=== PATIENT | male | born 1950 | race Caucasian/White ===

== ENCOUNTER 2019-03-21 23:58 | Emergency (ER) | payer MEDICARE, OTHER ==
[~2019-03-21] VITALS: Ht 190.5 cm; Wt 113.6 kg
[~2019-03-21 23:58] MED LIST: DULO-31 PO; TADA5TAB2 PO
[2019-03-22 00:57] VITALS: BP 126/72
== END 2019-03-22 01:35 | disposition home or self-care (01) ==
LOC: ER 23:59
DX: S06.9X1A Unspecified intracranial injury with loss of consciousness of 30 minutes or less, initial encounter (principal); Z79.899 Other long term (current) drug therapy; Y04.2XXA Assault by strike against or bumped into by another person, initial encounter; Y93.89 Activity, other specified; Y92.89 Other specified places as the place of occurrence of the external cause; Y99.8 Other external cause status
CPT/HCPCS: 70450; 99284

== ENCOUNTER 2020-07-31 12:55 | Inpatient (IN) | payer OTHER ==
[2020-07-31] VITALS (7 sets, daily range): BP systolic 127–147; BP diastolic 77–96
[~2020-07-31] VITALS: Ht 190.5 cm; Wt 111.4 kg
[2020-07-31] MEDS ORDERED: TETanus/Pertussis (Acell)/Diphther VAC/PF (Tdap-Adult) 0.5ml syringe IMVAC ONE (13:20)
[2020-07-31] MEDS ORDERED: ceFAZolin 1000mg inj IV ONE (13:20)
[2020-07-31] MEDS ORDERED: LIDOcaine 1% W/epiNEPHrine 1:200,000 10ml vial IJ ONE (13:20)
[2020-07-31] MEDS ORDERED: ceFAZolin 2gm in dextrose, iso 50 ML IV ONE (13:25)
--- NOTE | 2020-07-31 13:35 | NUR ---
CAT tourniquet removed at [address] prakash's verbal order[address] Dr[address] Prakash in room with patient.
[2020-07-31] MEDS ORDERED: ringers solution, lacted 1,000 ML IV SCH ×2 (15:07→16:24)
[2020-07-31] MEDS ORDERED: sevoflurane 250ml liquid IH ONE (15:22)
[2020-07-31] MEDS ORDERED: midazolam 2 mg/2 ml injection ONE (15:29)
[2020-07-31 15:35] LABS: BASOPHILS # (AUTO) 0.1 X10'3 (0-0.2); BASOPHILS % (AUTO) 1.5 % (0-1); EOSINOPHILS # (AUTO) 0.2 X10'3 (0-0.9); HEMATOCRIT 48.6 % (42.0-52.0); LYMPHOCYTES # (AUTO) 1.3 X10'3 (1.1-4.8); LYMPHOCYTES % (AUTO) 13.2 % (21-51); MEAN CORPUSCULAR HEMOGLOBIN 34.5 PG (27.0-31.0); MEAN CORPUSCULAR HGB CONC 34.9 g/dL (33.0-36.5); MEAN CORPUSCULAR VOLUME 98.8 FL (78-98); MEAN PLATELET VOLUME 8.8 FL (7.4-10.4); MONOCYTES # (AUTO) 0.4 X10'3 (0-0.9); MONOCYTES % (AUTO) 4.2 % (2-12); NEUTROPHILS # (AUTO) 7.5 X10'3 (1.8-7.7); NEUTROPHILS % (AUTO) 79.1 % (42-75); PLATELET COUNT 180 X10'3 (140-440); RED BLOOD COUNT 4.92 X10'6 (4.70-6.10); RED CELL DISTRIBUTION WIDTH 12.9 % (11.5-14.5); WHITE BLOOD COUNT 9.5 X10'3 (4.5-11.0)
[2020-07-31 15:50] LABS: ALANINE AMINOTRANSFERASE 40 U/L (12-78); ALBUMIN 3.8 G/DL (3.4-5.0); ALBUMIN/GLOBULIN RATIO 1.1 (1.1-1.5); ALKALINE PHOSPHATASE 82 IU/L (46-116); ANION GAP 8 (8-16); ASPARTATE AMINO TRANSFERASE 13 U/L (10-37); BILIRUBIN,TOTAL 0.4 MG/DL (0.1-1.0); BLOOD UREA NITROGEN 22 MG/DL (7-18); BUN/CREATININE RATIO 18.2 (5.4-32.0); CALCIUM 8.7 MG/DL (8.5-10.1); CHLORIDE 106 MMOL/L (99-107); CREATININE 1.21 MG/DL (0.60-1.10); GLUCOSE 139 MG/DL (70-104); SODIUM 140 MMOL/L (135-145); TOTAL CARBON DIOXIDE 25.8 MMOL/L (24-32); TOTAL PROTEIN 7.2 G/DL (6.4-8.2); eGFR 59 ML/MIN
[2020-07-31 15:53] LABS: TROPONIN I < 0.04 NG/ML (0.0-0.05)
[2020-07-31 15:54] LABS: POTASSIUM 4.1 MMOL/L (3.5-5.1)
[2020-07-31] MEDS ORDERED: LIDOcaine 2% 5ml jelly ONE (15:55)
[2020-07-31] MEDS ORDERED: rocuronium 10mg/ml inj IV ONE (15:55)
[2020-07-31] MEDS ORDERED: LIDOcaine 2% (20mg/ml) 5ml vial ONE (15:55)
[2020-07-31] MEDS ORDERED: propofol inj 20 ML IV ONE (15:55)
[2020-07-31] MEDS ORDERED: fentaNYL /PF 50mcg/ml 5ml ampule ONE (15:55)
[2020-07-31] MEDS ORDERED: metoclopramide 5 mg/ml inj ONE (15:55)
[2020-07-31] MEDS ORDERED: ceFAZolin 1000mg inj ONE ×2 (15:56)
[2020-07-31] MEDS ORDERED: ondansetron/PF 4mg/2ml inj ONE (16:00)
[2020-07-31] MEDS ORDERED: ceFAZolin 1GM/D5W- ADD-VANTAGE 50 ML IV SCH (16:00)
[2020-07-31] MEDS ORDERED: ePHEDrine 50MG/ML INJ. ONE (16:01)
[2020-07-31] MEDS ORDERED: 0.9 % SODIUM CHLORIDE 10 ML VIAL ONE (16:01)
[2020-07-31] MEDS ORDERED: ondansetron/PF 4mg/2ml inj IV PRN (16:25)
[2020-07-31] MEDS ORDERED: proCHLORperazine 10 MG/2 ml inj IV PRN (16:25)
[2020-07-31] MEDS ORDERED: acetaminophen 1,000mg/100ml IV 100 ML IV PRN (16:25)
[2020-07-31] MEDS ORDERED: morphine 2 MG/ML inj. syringe IV PRN (16:25)
[2020-07-31] MEDS ORDERED: HYDROmorphone inj. 0.5 MG/0.5 ML DISP.SYRIN IV PRN ×2 (16:25)
[2020-07-31] MEDS ORDERED: morphine 4 MG/ML inj SYRINge IV PRN (16:25)
[2020-07-31] MEDS ORDERED: meperidine/PF 25mg/ml syringe IV PRN (16:25)
[2020-07-31] MEDS ORDERED: neostigmine methylsulfate 1 MG/ML 10ml vial ONE (16:32)
[2020-07-31] MEDS ORDERED: glycopyrrolate 0.2mg/ml inj ONE (16:32)
--- NOTE | 2020-07-31 16:45 | NUR ---
Received from OR via PRAKASH , accompanied by Anesthesiologist GUME and report given by Anesthesiolgist. PATIENT WITH 20GPIV IN RIGHT UE RUNNING ANTIBIOTICS AT THIS TIME. VSS. BLESSING PAIN + CAP REFILL. Addendum: 07/31/20 at 1700 by Charly Ramsey RN RN Amended: Links added.
[2020-07-31] MEDS ORDERED: HYDROcodone/acetaminophen 5mg/325mg tablet PO ONE (16:55)
--- NOTE | 2020-07-31 17:25 | NUR ---
ALL CRITERIA FOR TRANSFER TO THE FLOOR HAS BEEN ACHIEVED. REPORT GIVEN AND ALL QUESTIONS ANSWERED, VSS. BED LOW 2 RAILS UP, CALL LIGHT PRESENT AND PATIENT HOOKED UP TO ALL LINES AND VSS. PATIENTS RN PRESENT TO ACCEPT CARE. AMBULATED TO BATHROOM WHERE MIMI SANCHEZ TO SETTLE PATIENT IN. NO LOB. NO CO.PAIN. VSS. Addendum: 07/31/20 at 1733 by Charly Lees - MIMI LE Amended: Links added.
[2020-07-31] MEDS ORDERED: TADA5TAB2 PO (17:48)
--- NOTE | 2020-07-31 18:30 | NUR ---
Patient in room [facility]. I have received report from DANIEL LE and had the opportunity to ask questions and assume patient care. PATIENT GOING HOME TONIGHT PER REPORT.
--- NOTE | 2020-07-31 19:10 | NUR ---
CALLED DR. FLORENCE TO CLARIFY IF PATIENT CAN GO HOME NO DOCUMENTATION IS WRITTEN ABOUT PATIENT GOING HOME TONIGHT WITH ORDER: PATIENT CAN BE DISCHARGE AFTER 1-2 HOURS IN 3SURGICAL FLOOR.
--- NOTE | 2020-07-31 19:30 | NUR ---
PATIENT'S PIV DISCONTINUED WITH CANNULA INTACT, PRESSURE DRESSING APPLIED.
--- NOTE | 2020-07-31 19:35 | NUR ---
DISCHARGE INSTRUCTIONS GIVEN TO PATIENT AND VERBALIZED UNDERSTANDING, DISCHARGE PAPER SIGNED BY PATIENT.
--- NOTE | 2020-07-31 19:45 | NUR ---
PATIENT LEFT FOR DISCHARGE HOME WITH IN A WHEEL CHAIR TO THE FRONT DOOR.
[2020-08-01] MEDS ORDERED: CEPH-572 PO (09:16)
[2020-08-01] MEDS ORDERED: OXYC-150 PO (09:16)
--- NOTE | 2020-08-01 14:33 | NUR ---
Pt was discharged yesterday following hand surgery. Came in to hospital to warp picker forgotten discharge paperwork and med prescription. Pt has written script for [employer] and states he does not want it and will be ok without a script for pain meds. Triplicate form for [employer] torn up and placed into shredder. Witnessed by Samuel Silverman.
== END 2020-07-31 19:45 | disposition home or self-care (01) | DRG 581 ==
LOC: ER 12:56 → SUR 3N 15:07
PROVIDERS: ADMIT Surgery; ATTEND Surgery
PROC: 0XQK0ZZ Repair Left Hand, Open Approach (ICD-10-PCS; 2020-07-31)
PROC: 3E0234Z Introduction of Serum, Toxoid and Vaccine into Muscle, Percutaneous Approach (ICD-10-PCS; 2020-07-31)
PROC: 0X3K0ZZ Control Bleeding in Left Hand, Open Approach (ICD-10-PCS; principal; 2020-07-31 15:22)
DX: S61.412A Laceration without foreign body of left hand, initial encounter (principal); N28.9 Disorder of kidney and ureter, unspecified; Z23 Encounter for immunization; Y93.89 Activity, other specified; Y92.89 Other specified places as the place of occurrence of the external cause; Y99.8 Other external cause status; Z88.2 Allergy status to sulfonamides
CPT/HCPCS: 12001; 36415; 71045; 73130; 80053; 84484; 85025; 86885; 86900; 86901; 87081; 90471; 90715; 93005; 96365; 99291; A4618; A6222; A6449; A7000; G0378; J0690; J2001; J2250; J2405; J2704; J2710; J2765; J3010; J3490; J7030; J7120